=== PATIENT | male | born 1985 ===

== ENCOUNTER 2018-10-28 16:46 | Emergency (ER) | payer OTHER ==
[2018-10-28 17:20] VITALS: BP 129/80; PULSE 69; RESP 16; TEMP 98.5; O2SAT 97
--- NOTE | 2018-10-28 19:00 | ED PDOC ---
Lower Extremity Pain/Injury Time Seen by Provider: 10/28/18 18:36 Chief Complaint (Nursing): Lower Extremity Problem/Injury Chief Complaint (Provider): Lower Extremity Problem/Injury History Per: Patient History/Exam Limitations: no limitations Onset/Duration Of Symptoms: Hrs (x10 hours ago ) Current Symptoms Are (Timing): Still Present Additional Complaint(s): Patient is a 33 year old male who reports having left big toe pain. 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 He reports that the pain has been worsening throughout the day, especially with weight bearing. He has not taken any medications for the pain. Otherwise: (-) other injury or complaints. PMD: no provider Past Medical History Reviewed: Historical Data, Nursing Documentation, Vital Signs Vital Signs: Last Vital Signs Temp 98.5 F 10/28/18 17:17 Pulse 69 10/28/18 17:17 Resp 16 10/28/18 17:17 BP 129/80 10/28/18 17:17 Pulse Ox 97 10/28/18 17:17 - Medical History PMH: No Chronic Diseases - Surgical History Surgical History: No Surg Hx - Family History Family History: States: Unknown Family Hx - Home Medications Home Medications: Ambulatory Orders Medication Instructions Recorded RX: Ibuprofen [Motrin Tab] 600 mg PO Q6 PRN #20 tab 10/28/18 - Allergies Allergies/Adverse Reactions: Allergies Allergy/AdvReac Type Severity Reaction Status Date / Time No Known Allergies Allergy Verified 10/28/18 17:20 Review of Systems ROS Statement: Except As Marked, All Systems Reviewed And Found Negative Musculoskeletal: Positive for: Other (left big toe pain) Physical Exam - Reviewed Nursing Documentation Reviewed: Yes Vital Signs Reviewed: Yes - Physical Exam Comments: GENERAL APPEARANCE: Patient is awake, alert, oriented x 3, in no acute distress, limping in ED. SKIN: Warm, dry; (-) cyanosis. NECK: Supple Left foot: (+)diffuse tenderness to left first toe (+)faint ecchymosis to the dorsum, medial aspect of the distal phalanx of the left first toe with mild edema; decreased flexion of the first toe secondary to pain (-) subungual hematoma. Remainder of foot is nontender with FROM (-) skin break. (+) pulses. Capillary refill intact (+) distal sensation. CARDIOVASCULAR: RRR (-) murmur CHEST AND RESPIRATORY: (-) rales, (-) rhonchi, (-) wheezes; breath sounds equal bilaterally. Respirations even and nonlabored. NEUROLOGIC: Mental status as above. Gait: limping. Speech: clear. (-) facial asymmetry - ECG O2 Sat by Pulse Oximetry: 97 (RA) Pulse Ox Interpretation: Normal Medical Decision Making Medical Decision Making: Time: 18:40 Impression: acute toe pain, rule out fracture Plan: --Motrin 600 mg PO --Left foot x-ray 3 views 1929 Foot XR 3 views: (-) fracture as read by Jessica RAMOS On re-evaluation, patient reports improvement of symptoms. On exam, patient remains AAOx3, in no acute distress. Vitals stable. Lab /Diagnostic results d/w the patient in great detail. Diagnosis of toe contusion d/w the patient. RICE encouraged. Based on history, exam and diagnostic results, plan will be for outpatient fol low up with clinic/podiatry. Patient instructed to follow-up with pmd / referral provided / the clinic in 1- 2 days without fail. Advised to take medication as prescribed. Return to the emergency room at any time for any new or worsening symptoms. Patient states he fully agrees with and understands discharge instructions. States that he agrees with the plan and disposition. Verbalized and repeated discharge instructions and plan. I have given the patient opportunity to ask any additional questions. Scribe Attestation: Documented by Anthony Syed, acting as a scribe for Jeni Kelley. Provider Scribe Attestation: All medical record entries made by the Scribe were at my direction and personally dictated by me. I have reviewed the chart and agree that the record accurately reflects my personal performance of the history, physical exam, medical decision making, and the department course for this patient. I have also personally directed, reviewed, and agree with the discharge instructions and disposition. Disposition - Clinical Impression Clinical Impression: Toe contusion, Toe pain, left - Patient ED Disposition Is Patient to be Admitted: No Counseled Patient/Family Regarding: Studies Performed, Diagnosis, Need For Followup, Rx Given - Disposition Referrals: [facility] [Outside] Podiatry Clinic [Outside] Disposition: Routine/Home Disposition Time: 19:35 Condition: STABLE Additional Instructions: La atencin mdica de emergencia que recibi hoy se dirigi a pedro sntomas agudos. Si le recetaron algn medicamento, llnelo y tmelo segn las indicaciones. Los sntomas pueden tardar varios perez en resolverse. Regrese al Departamento de Emergencias si pedro sntomas empeoran, no mejoran o si tiene otros problemas. Comunquese con [place] mdico dentro de 2 perez para sade nueva evaluacin y rain un seguimiento o llame a yancy de los mdicos / clnicas a los que murray sido referido y que figuran en el formulario de Informacin de visita al paciente que se incluye en [place] paquete de prasad. Lleve todos los documentos que le entregaron al momento del prasad junto con todos los medicamentos que est tomando para [place] visita de seguimiento. Nuestro tratamiento no puede reemplazar la atencin mdica continua por parte de un proveedor de atencin primaria (PCP) fuera del departamento de emergencias. Prescriptions: RX: Ibuprofen [Motrin Tab] 600 mg PO Q6 PRN #20 tab PRN Reason: Pain, Moderate (4-7) Instructions: Muscle and Bone Pain (DC), Contusion (DC), Toe Injury Forms: [facility] (Portuguese), [facility] ED School/Work Excuse Print Language: RUSSIAN - POA Present On Arrival: None
--- NOTE | 2018-10-29 10:17 | RAD ---
Date of service: 10/28/2018 PROCEDURE: Left Foot Radiographs. HISTORY: s/p object falling on foot, (+) pain COMPARISON: None. FINDINGS: BONES: Normal. No fracture. JOINTS: Normal. SOFT TISSUES: Normal. OTHER FINDINGS: None. IMPRESSION: Normal left foot radiographs. Concordant results with the preliminary interpretation rendered by the emergency department physician procedure.
== END 2018-10-28 20:35 | disposition home or self-care (01) ==
LOC: H.ER 16:46
DX: S90.112A Contusion of left great toe without damage to nail, initial encounter (principal); W22.8XXA Striking against or struck by other objects, initial encounter; Y99.0 Civilian activity done for income or pay